=== PATIENT | female | born 1995 | race Caucasian/White ===

== ENCOUNTER 2017-08-18 04:45 | Emergency (ER) | payer BC ==
[2017-08-18 04:52] VITALS: BP 149/94
--- NOTE | 2017-08-18 05:13 | RADIOLOGY REPORT (SQ) ---
EXAM DESCRIPTION: XR KNEE 4 OR MORE VIEWS CLINICAL HISTORY: 22 years Female, knee pain COMPARISON: None. Findings: Bones, joints, and soft tissues of the XR LEFT KNEE 4 VIEWS appear intact. IMPRESSION: No acute findings.
--- NOTE | 2017-08-18 05:25 | ER Document Report ---
HPI - HPI Patient complains to provider of: left knee pain Pain Level: 2 Context: Patient is a 22 year old female that comes to the ED for chief complaint of left knee pain. Past Medical History - General Information source: Patient - Social History Smoking Status: Never Smoker Frequency of alcohol use: None Drug Abuse: None Lives with: Family Family History: Reviewed & Not Pertinent - Medical History Medical History: Negative Surgical Hx: Negative - Immunizations Immunizations up to date: Yes Hx Diphtheria, Pertussis, Tetanus Vaccination: Yes Vertical Provider Document - CONSTITUTIONAL General Appearance: WD/WN, No Apparent Distress - INFECTION CONTROL TRAVEL OUTSIDE OF THE [place] IN LAST 30 DAYS: No - HEENT HEENT: Atraumatic, Normal ENT Exam, Normocephalic - NECK Neck: Normal Inspection - RESPIRATORY Respiratory: Breath Sounds Normal, No Respiratory Distress - CARDIOVASCULAR Cardiovascular: Regular Rate, Regular Rhythm - GI/ABDOMEN Gastrointestinal: Abdomen Soft, Abdomen Non-Tender - BACK Back: Normal Inspection - MUSCULOSKELETAL/EXTREMETIES Musculoskeletal/Extremeties: Tender - Tender over left medial knee area; no swelling, normal range of motion, no erythema, no abnormal heat, no obvious popping or other abnormality noted on examination of the knee. Patient does have hyperpronation when she stands, she does walk with a mild limp. Course - Re-evaluation Re-evalutation: X-ray unremarkable. Appears to be MCL strain, possibly because of her hyperpronation. I discussed with the patient. Discussed shoe inserts and support, provided with work release, immobilization, crutches, discussed treatment, follow-up, orthopedic follow-up, and return precautions. Patient states understanding and agreement. - Vital Signs Vital signs: Temp Pulse Resp BP Pulse Ox 98.0 F 100 20 149/94 H 96 08/18/17 04:51 08/18/17 04:51 08/18/17 04:51 08/18/17 04:51 08/18/17 04:51 Procedures - Immobilization left knee Pre-Proc Neuro Vasc Exam: Normal Immobilizer type: Knee immobilizer Performed by: RN Post-Proc Neuro Vasc Exam: Normal Alignment checked and good: Yes Discharge - Discharge Clinical Impression: Left knee pain Qualifiers: Chronicity: acute Qualified Code(s): M25.562 - Pain in left knee Condition: Stable Disposition: HOME, SELF-CARE Additional Instructions: Your x-ray is normal. Your examination indicates strain of the medial collateral ligament. This appears to be partly from hyperpronation of your feet and repetitive injury although this is not definite. Recommendation is to use the crutches and the knee immobilizer along with icing (3-4 times a day for 10-15 min), elevation when possible, and anti-inflammatory for the next 2-3 days , return to normal activity as tolerated. You may need a follow-up MRI if symptoms do not resolve. Follow-up with your primary care or the orthopedics referral. Return if you worsen including redness, severe pain, swelling, or any other concerning symptoms. Forms: Return to Work, Elevated Blood Pressure Referrals: VICKY MORA, [ACTIVE STAFF] - Follow up as needed
== END 2017-08-18 05:40 | disposition home or self-care (01) ==
LOC: ER 04:45
DX: M25.562 Pain in left knee (principal)
CPT/HCPCS: 99283; 73564; L1830

== ENCOUNTER 2018-11-11 17:22 | Emergency (ER) | payer SELFPAY ==
[2018-11-11 20:26] LABS: APPEARANCE,URINE CLEAR; BILIRUBIN,URINE NEGATIVE (NEGATIVE); COLOR,URINE YELLOW; GLUCOSE, URINE >=500 mg/dL (NEGATIVE); KETONES,URINE NEGATIVE (NEGATIVE); LEUKOCYTE ESTERASE,URINE NEGATIVE (NEGATIVE); NITRITE,URINE NEGATIVE (NEGATIVE); PROTEIN,URINE NEGATIVE (NEGATIVE); URINE SPECIFIC GRAVITY 1.022; UROBILINOGEN,URINE NEGATIVE mg/dL (<2.0)
--- NOTE | 2018-11-11 20:41 | ER Document Report ---
HPI - HPI Time Seen by Provider: 11/11/18 19:48 Pain Level: Denies Context: Patient is a 23-year-old female presents to the emergency department with a chief complaint of vaginal discharge. Patient states that for about 1 month she has been dealing with intermittent vaginal discharge that has continued to get worse. Patient states she is sexually active with one partner for the past 8 months. She states that she is on the Nexplanon at control and they do n ot use condoms. Patient states she is not concerned for STDs but more so bacterial vaginosis. Patient states that at time her vaginal discharge will be brown and turcios in color. Patient states that it is also been clear and yellow. Patient states she is also had a small amount of itching to the area. Patient denies pelvic pain, urinary symptoms, vomiting or diarrhea, fever. - EENT EENT: DENIES: Sore Throat, Ear Pain, Eye problems - NEURO Neurology: DENIES: Headache, Weakness, Vision blurred, Dizzinesss / Vertigo - CARDIOVASCULAR Cardiovascular: DENIES: Chest pain - RESPIRATORY Respiratory: DENIES: Trouble Breathing, Coughing - GASTROINTESTINAL Gastrointestinal: DENIES: Abdominal Pain, Black / Bloody Stools - URINARY Urinary: DENIES: Dysuria, Urgency, Frequency - REPRODUCTIVE Reproductive: REPORTS: Abnormal bleeding / discharge - brown/quintanilla-"weird" no odor. DENIES: :, Postmenopausal - MUSCULOSKELETAL Musculoskeletal: DENIES: Extremity pain Past Medical History - General Information source: Patient - Social History Smoking Status: Former Smoker Lives with: Family Family History: Reviewed & Not Pertinent Patient has suicidal ideation: No Patient has homicidal ideation: No - Past Medical History Cardiac Medical History: Reports: None Pulmonary Medical History: Reports: None EENT Medical History: Reports: None Neurological Medical History: Reports: None Endocrine Medical History: Reports: None Renal/ Medical History: Reports: None. Denies: Hx Peritoneal Dialysis Malignancy Medical History: Reports: None GI Medical History: Reports: None Musculoskeletal Medical History: Reports None Skin Medical History: Reports None Psychiatric Medical History: Reports: None Traumatic Medical History: Reports: None Infectious Medical History: Reports: None Surgical Hx: Negative - Immunizations Immunizations up to date: Yes Hx Diphtheria, Pertussis, Tetanus Vaccination: Yes Vertical Provider Document - CONSTITUTIONAL Agree With Documented VS: Yes Exam Limitations: No Limitations General Appearance: No Apparent Distress - INFECTION CONTROL TRAVEL OUTSIDE OF THE [place] IN LAST 30 DAYS: No - HEENT HEENT: Atraumatic, Normocephalic, PERRLA - NECK Neck: Normal Inspection, Supple - RESPIRATORY Respiratory: Breath Sounds Normal, No Respiratory Distress - CARDIOVASCULAR Cardiovascular: Regular Rate, Regular Rhythm - GI/ABDOMEN Gastrointestinal: Abdomen Soft, Abdomen Non-Tender, Normal Bowel Sounds - NEURO Level of Consciousness: Awake, Alert, Appropriate - DERM Integumentary: Warm, Dry, No Rash Course - Re-evaluation Re-evalutation: 11/11/18 20:59 I did inform the patient that she had a large amount of glucose in her urine. Patient denies a history of diabetes. I informed the patient that we should do blood work to check her kidney function as well as her glucose. Patient states she probably does have diabetes as she has a strong family history. Patient states that at this time she does not want any blood work tonight. I did inform the patient this is something that needs to be followed up with. I will give her information for the [facility] as well as [facility]. I did inform the patient that these 2 referrals are places that can help her get medical treatment despite not having insurance. Patient verbalized understanding and denies questions at this time I did inform the patient to return if she has any issues or new symptoms, or would like to have the blood work drawn. - Vital Signs Vital signs: Temp Pulse Resp BP Pulse Ox 98.0 F 98 16 134/64 H 98 11/11/18 20:06 11/11/18 20:06 11/11/18 20:06 11/11/18 20:06 11/11/18 20:06 - Laboratory Laboratory results interpreted by me: 11/11/18 20:01 Urine Glucose (UA) >=500 H Urine Blood SMALL H 11/11/18 20:59 Laboratory 11/11/18 20:01 Urine Color YELLOW Urine Appearance CLEAR Urine pH 6.0 Ur Specific Violet 1.022 Urine Protein NEGATIVE Urine Glucose (UA) >=500 H Urine Ketones NEGATIVE Urine Blood SMALL H Urine Nitrite NEGATIVE Urine Bilirubin NEGATIVE Urine Urobilinogen NEGATIVE Ur Leukocyte Esterase NEGATIVE Urine WBC (Auto) 1 Urine RBC (Auto) 1 Squamous Epi Cells Auto 2 Urine Mucus (Auto) RARE Urine Ascorbic Acid NEGATIVE Urine HCG, Qual NEGATIVE Procedures - Pelvic Exam Pelvic exam Time completed: 20:55 Cultures obtained: Yes Wet prep obtained: Yes Bimanual exam performed: No Witnessed by: Nurse Belkys Bloom [facility] Notes: 11/11/18 20:58 External genitalia was unremarkable without swelling, erythema, lesions or discharge. I was able to insert the speculum and easily visualize the cervix. The cervix was closed. Patient did have a small amount of brown discharge. I was able to remove the speculum around the cervix without inducing any significant pain. Patient tolerated overall well. Discharge - Discharge Clinical Impression: Glycosuria, Vaginal discharge, Bacterial vaginosis, Yeast infection Condition: Stable Disposition: HOME, SELF-CARE Additional Instructions: Today you are seen in the emergency department for vaginal discharge. Your vaginal specimens were positive for bacterial vaginosis as well as yeast. You have been treated with 1 dose of Diflucan here in the emergency department. Typically only require 1 dose. I am giving you a prescription for 1 tablet and if you are still having symptoms you can repeat this in 72 hours. You are also being prescribed Flagyl. Flagyl is an antibiotic to treat bacterial vaginosis. Do not drink alcohol with this as this can cause severe vomiting. You will take this twice a day for 1 week. We have sent off gonorrhea and Chlamydia cultures. You will be contacted next 24 to 48 hours if these come back positive and you need oral antibiotics. Your urine sample was negative for a urinary tract infection and is negative for . It was noted you had a very large amount of glucose (sugar) in the urine. We did offer to obtain a blood work to check your glucose level and your kidney function but at this time you have politely declined. It is very important to have this rechecked. I have given you to referrals to the [facility] as well as [facility]. These are types of clinics that can help people who do not have health insurance. Please call them to make a follow-up appointment. If you do decide you would like blood testing please come back to the emergency department especially if you develop any new or worsening symptoms. I would attempt to lower your sugar and carb intake. Prescriptions: Fluconazole [Diflucan] 150 mg PO ONCE PRN #1 tablet PRN Reason: Metronidazole [Flagyl] 500 mg PO BID 10 Days #14 tablet Referrals: [facility] [Provider Group] - Follow up as needed [facility] [Provider Group] - Follow up as needed
[2018-11-11 21:16] LABS: BACTERIA (WET MOUNT) 3+ BACTERIA SEEN; T.VAGINALIS (WET MOUNT) NO TRICHOMONAS SEEN; WBCS (WET MOUNT) FEW WBCS SEEN; YEAST (WET MOUNT) YEAST SEEN
[2018-11-11] MEDS ORDERED: FLUCONAZOLE 100 MG TABLET PO ONE (21:32)
[2018-11-11 21:51] VITALS: BP 129/92
[2018-11-11 22:41] LABS: CHLAM PCR NOT DETECTED (NOT DETECT)
== END 2018-11-11 21:51 | disposition home or self-care (01) ==
LOC: ER 17:22
DX: N76.0 Acute vaginitis (principal); B96.89 Other specified bacterial agents as the cause of diseases classified elsewhere; B37.9 Candidiasis, unspecified; R81 Glycosuria; Z97.5 Presence of (intrauterine) contraceptive device; Z87.891 Personal history of nicotine dependence; Z83.3 Family history of diabetes mellitus
CPT/HCPCS: 81001; 81025; 87210; 87491; 87591; 99283